=== PATIENT | female | born 1955 | race Caucasian/White ===

== ENCOUNTER 2016-08-01 13:10 | Emergency (ER) | payer MEDICARE, MEDICAID ==
[~2016-08-01] VITALS: Ht 162.6 cm; Wt 87.0 kg
[~2016-08-01 13:10] MED LIST: HYDR-3516 PO; LEVO.125 PO; MECL-62 PO; NAPR250T PO; OMEP20TA PO
[2016-08-01 13:36] VITALS: BP 121/63; PULSE 79; RESP 15; TEMP 98.5; O2SAT 94
[2016-08-01] MEDS ORDERED: ASPIRIN 81 MG CHEW TAB PO ONE (14:00)
[2016-08-01] MEDS ORDERED: SODIUM CHLORIDE 0.9% FLUSH 5 ML FLUSH IVF PRN (14:00)
--- NOTE | 2016-08-01 14:26 | PD ---
HPI Chief Complaint: Chest Pain Time Seen by Provider: 14:01 Travel History International Travel<30 days: No Contact w/Intl Traveler<30days: No Traveled to known affect area: No History of Present Illness HPI 60 year-old female presents to the emergency room via ambulance for evaluation of chest pain that has been ongoing for the past 3 days. Patient states she has had a nonproductive cough, nausea, vomiting, sore throat, and congestion for the same amount of time. She went to her primary care physician who prescribed an antibiotic but she has not been able to fill it yet. She was sent to [place] today for a chest x-ray and while there began complaining of sharp, severe, left-sided chest pain so they called an ambulance. Patient states pain is intermittent. It is always sharp in nature. Worse with deep breathing. One time it radiated to her left upper extremity and caused a muscle cramp in her biceps. Denies associated diaphoresis and shortness of breath. Denies cardiac or lung history. Patient is former smoker. She did not have a flu shot this year. Denies abdominal pain. Patient received aspirin in route to hospital. 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, bunion) Social History Alcohol Use: No Tobacco Use: No Substance Use: No Allergies-Medications (Allergen,Severity, Reaction): Coded Allergies: Amoxicillin (Verified Allergy, Severe, Rash, 03/01/16) Flexeril (Verified Allergy, Severe, Rash, 03/01/16) Keflex (Verified Allergy, Severe, Rash, 03/01/16) Penicillin (Verified Allergy, Severe, Rash, 03/01/16) Tylenol (Verified Allergy, Severe, HIVES, 03/01/16) Reported Meds & Prescriptions Reported Meds & Active Scripts Active Ventolin Hfa 18 GM Inh (Albuterol Sulfate) 90 Mcg/Act Aer 2 Puff INH Q6H PRN Ibuprofen 800 Mg Tab 800 Mg PO Q8H PRN Azithromycin 250 Mg Tab 250 Mg PO DIRECTED Take 2 tabs (500 mg) on day 1 then 1 tab daily x 4 days. Naproxen 250 Mg Tab 250 Mg PO BID Take Naproxen 500mg (2 tablets) twice daily for 5 days, followed by 250mg (1 tablet) twice daily as needed for pain. Reported Synthroid (Levothyroxine Sodium) 125 Mcg Tab 125 Mcg PO DAILY Omeprazole 20 Mg Tab 20 Mg PO DAILY Meclizine (Meclizine HCl) 25 Mg Tab 25 Mg PO TID PRN Hydrocodone-Acetaminophen 5-325 mg Tab 1 Tab PO Q6H PRN Review of Systems Except as stated in HPI: all other systems reviewed are Neg Physical Exam Narrative GENERAL: Well-nourished, well-developed female in no acute distress. Afebrile. Ambulatory. SKIN: Warm and dry. HEAD: Normocephalic. EYES: No scleral icterus. No injection or drainage. ENT: Mucosa pink and moist. Mild erythema of the pharynx without edema or exudates. No uvular edema. No uvular, palatal, or tonsillar deviation. Airway patent. Nasal turbinates appear normal without nasal blood, purulent drainage or septal hematoma. EARS: Bilateral pinnae and external canals appear within normal limits. Bilateral tympanic membranes without erythema, dullness or perforation. NECK: Supple, trachea midline. No JVD or lymphadenopathy. CARDIOVASCULAR: Regular rate and rhythm without murmurs, gallops, or rubs. RESPIRATORY: Breath sounds equal bilaterally. No accessory muscle use. Bilateral inspiratory and expiratory wheezes. GASTROINTESTINAL: Abdomen soft, non-tender, nondistended. Data Data Last Documented VS Vital Signs Date Time Temp Pulse Resp B/P Pulse Ox O2 Delivery O2 Flow Rate FiO2 08/01/16 13:36 98.5 79 15 121/63 94 Orders Electrocardiogram (08/01/16 ) Ckmb (Isoenzyme) Profile (08/01/16 13:59) Complete Blood Count With Diff (08/01/16 13:59) Comprehensive Metabolic Panel (08/01/16 13:59) Prothrombin Time / Inr (Pt) (08/01/16 13:59) Act Partial Throm Time (Ptt) (08/01/16 13:59) Troponin I (08/01/16 13:59) Lipase (08/01/16 13:59) Ecg Monitoring (08/01/16 13:59) Bilateral Bp Monitoring (08/01/16 13:59) Iv Access Insert/Monitor (08/01/16 13:59) Oximetry (08/01/16 13:59) Sodium Chloride 0.9% Flush (Ns Flush) (08/01/16 14:00) Chest, Pa & Lat (08/01/16 13:59) Influenzae A/B Antigen (08/01/16 14:07) Pantoprazole Inj (Protonix Inj) (08/01/16 14:30) Albuterol-Ipratropium Neb (Duoneb Neb) (08/01/16 14:45) Calcium Gluconate Inj (Calcium Gluconate (08/01/16 15:15) Labs Laboratory Tests Test 08/01/16 14:15 White Blood Count 7.8 TH/MM3 Red Blood Count 4.27 MIL/MM3 Hemoglobin 13.1 GM/DL Hematocrit 39.0 % Mean Corpuscular Volume 91.3 FL Mean Corpuscular Hemoglobin 30.8 PG Mean Corpuscular Hemoglobin 33.7 % Concent Red Cell Distribution Width 13.5 % Platelet Count 167 TH/MM3 Mean Platelet Volume 9.0 FL Neutrophils (%) (Auto) 53.5 % Lymphocytes (%) (Auto) 32.7 % Monocytes (%) (Auto) 10.6 % Eosinophils (%) (Auto) 2.5 % Basophils (%) (Auto) 0.7 % Neutrophils # (Auto) 4.2 TH/MM3 Lymphocytes # (Auto) 2.5 TH/MM3 Monocytes # (Auto) 0.8 TH/MM3 Eosinophils # (Auto) 0.2 TH/MM3 Basophils # (Auto) 0.1 TH/MM3 CBC Comment DIFF FINAL Differential Comment Prothrombin Time 10.7 SEC Prothromb Time International 1.0 RATIO Ratio Activated Partial 28.9 SEC Thromboplast Time Sodium Level 139 MEQ/L Potassium Level 4.0 MEQ/L Chloride Level 102 MEQ/L Carbon Dioxide Level 30.3 MEQ/L Anion Gap 7 MEQ/L Blood Urea Nitrogen 8 MG/DL Creatinine 0.94 MG/DL Estimat Glomerular Filtration 61 ML/MIN Rate Random Glucose 87 MG/DL Calcium Level 6.9 MG/DL Protein Corrected Calcium 7.0 MG/DL Total Bilirubin 0.3 MG/DL Aspartate Amino Transf 15 U/L (AST/SGOT) Alanine Aminotransferase 13 U/L (ALT/SGPT) Alkaline Phosphatase 114 U/L Total Creatine Kinase 84 U/L Troponin I LESS THAN 0.02 NG/ML Total Protein 7.0 GM/DL Albumin 3.3 GM/DL Lipase 128 U/L MDM Medical Decision Making Medical Screen Exam Complete: Yes Emergency Medical Condition: Yes Medical Record Reviewed: Yes Differential Diagnosis Pneumonia versus influenza versus musculoskeletal chest pain versus pleuritic chest pain versus CAD unlikely Narrative Course 60-year-old female with no known cardiac or lung disease presents to the emergency room via ambulance for evaluation of bilateral, sharp, pleuritic chest pain, left worse than right for the past 3 days. Patient has associated upper respiratory symptoms. She was started on antibiotics recently but has not filled them yet. She was at the imaging center to have a chest x-ray performed when she began developing worsening pain. Physical exam is reassuring. Vital signs stable. She is 95% on room air. Lung sounds reveal bilateral inspiratory and expiratory wheezes. DuoNeb's ordered. IV access established, given Protonix, patient placed on cardiac telemetry, and basic labs obtained. EKG shows normal sinus rhythm with a rate of 70, no ST changes; signed off by my attending physician. Rapid flu is negative. CBC is unremarkable. CMP just shows low calcium. Calcium replaced with calcium gluconate. History and physical exam are consistent with acute bronchitis with associated pleuritic chest pain. Patient's pain is not typical of cardiac etiology. Patient has had similar presentation in the past and was admitted to the chest pain center with cardiac etiology ruled out using serial EKGs and enzymes. She'll be discharged with prescriptions for azithromycin, albuterol inhaler, and ibuprofen for pain. Patient to follow up with her primary care physician or return to the emergency room for worsening symptoms. She understands and agrees to plan. Diagnosis Primary Impression: Acute bronchitis Qualified Code: J20.9 - Acute bronchitis, unspecified organism Additional Impression: Pleuritic chest pain Referrals: Primary Care Physician Patient Instructions: Acute Bronchitis (ED), General Instructions, Pleurisy (ED ) Additional Instructions: Rest and drink plenty of fluids. Azithromycin as directed, until gone. Use inhaler as directed, as needed for shortness of breath and wheezing. Take ibuprofen with food as directed, as needed for pleuritic chest pain pain. Follow-up with a primary care physician. Return to the emergency room for worsening symptoms. Med/Other Pt SpecificInfo: Prescription(s) given Scripts Albuterol 18 GM Inh (Ventolin Hfa 18 GM Inh)90 Mcg/Act Aer2 Puff INH Q6H PRN ( SHORTNESS OF BREATH) #1 INHALER Ref 0 Prov:Valeria Vega DO 08/01/16 Ibuprofen 800 Mg [id number] Mg PO Q8H PRN (Pain/Inflammation) #21 TAB Ref 0 Prov:Valeria Vega DO 08/01/16 Azithromycin 250 Mg [id number] Mg PO DIRECTED #6 TAB Ref 0 Take 2 tabs (500 mg) on day 1 then 1 tab daily x 4 days. Prov:Valeria Vega DO 08/01/16 Disposition: 01 DISCHARGE HOME Condition: Stable Juliette Osullivan Aug 01, 2016 14:26
[2016-08-01] MEDS ORDERED: PANTOPRAZOLE SODIUM 40 MG VIAL IVP ONE (14:30)
[2016-08-01 14:32] LABS: AUTOMATED NEUTROPHIL # 4.2 TH/MM3 (1.8-7.7); BASOPHIL # 0.1 TH/MM3 (0-0.2); BASOPHIL % 0.7 % (0.0-2.0); EOSINOPHIL # 0.2 TH/MM3 (0-0.4); EOSINOPHIL % 2.5 % (0.0-4.0); HEMO FLAGS DIFF FINAL; LYMPH % 32.7 % (9.0-44.0); LYMPHOCYTE # 2.5 TH/MM3 (1.0-4.8); MEAN CELL VOLUME 91.3 FL (80.0-100.0); MEAN CORPUSCULAR HEMOGLOBIN 30.8 PG (27.0-34.0); MEAN CORPUSCULAR HGB CONC 33.7 % (32.0-36.0); MONO % 10.6 % (0.0-8.0); NEUT % 53.5 % (16.0-70.0); PLATELET COUNT 167 TH/MM3 (150-450); RED BLOOD COUNT 4.27 MIL/MM3 (4.00-5.30); RED CELL DISTRIBUTION WIDTH 13.5 % (11.6-17.2); WHITE BLOOD COUNT 7.8 TH/MM3 (4.0-11.0)
[2016-08-01 14:40] LABS: APTT (PATIENT) 28.9 SEC (24.3-30.1); PROTHROMBIN TIME - PATIENT 10.7 SEC (9.8-11.6)
[2016-08-01 15:00] LABS: ALKALINE PHOSPHATASE 114 U/L (45-117); ALT (GPT) 13 U/L (10-53); ANION GAP 7 MEQ/L (5-15); AST (GOT) 15 U/L (15-37); BICARBONATE 30.3 MEQ/L (21.0-32.0); BLOOD UREA NITROGEN 8 MG/DL (7-18); CHLORIDE 102 MEQ/L (98-107); GLOMERULAR FILTRATION RATE 61 ML/MIN (>89); SODIUM (NA) 139 MEQ/L (136-145); TOTAL BILIRUBIN ADULT 0.3 MG/DL (0.2-1.0)
[2016-08-01 15:01] LABS: CREATINE KINASE 84 U/L (26-192)
[2016-08-01] MEDS: RESP: ALBUTEROL 2.5 MG/IPRATROPIUM 0.5 MG NEB (SCH) INH ×2 (15:07→15:08)
[2016-08-01] MEDS ORDERED: CALCIUM GLUCONATE INJ 1 GM in DEXTROSE 5% IN WATER 100ML INJ 100 ML IV ONE ×2 (15:15)
--- NOTE | 2016-08-01 15:21 | PD ---
Physical Exam Narrative I, Dr. Vega, have reviewed the advance practice practitioner's documentation and am in agreement, met with the patient face to face, made the diagnosis, and the medical decision making was done by me. *My assessment and Findings: URI with reactive airway disease and pleuritic chest pain 60yo F with 3 days of URI symptoms. Pt has very mild wheezing on lung exam and receiving nebulizer treatments. Chest pain is very reproducible under left breast, impression is musculoskeletal pain from coughing or costochondritis. Labs reviewed, no leukocytosis. Protein corrected calcium is 7.0, replaced with calcium gluconate 1gm IV. Troponin negative. CXR negative. Pt feels better after treatment. Return precautions given. Influenza negative. Data Data Last Documented VS Vital Signs Date Time Temp Pulse Resp B/P Pulse Ox O2 Delivery O2 Flow Rate FiO2 08/01/16 13:36 98.5 79 15 121/63 94 Orders Electrocardiogram (08/01/16 ) Ckmb (Isoenzyme) Profile (08/01/16 13:59) Complete Blood Count With Diff (08/01/16 13:59) Comprehensive Metabolic Panel (08/01/16 13:59) Prothrombin Time / Inr (Pt) (08/01/16 13:59) Act Partial Throm Time (Ptt) (08/01/16 13:59) Troponin I (08/01/16 13:59) Lipase (08/01/16 13:59) Ecg Monitoring (08/01/16 13:59) Bilateral Bp Monitoring (08/01/16 13:59) Iv Access Insert/Monitor (08/01/16 13:59) Oximetry (08/01/16 13:59) Sodium Chloride 0.9% Flush (Ns Flush) (08/01/16 14:00) Chest, Pa & Lat (08/01/16 13:59) Influenzae A/B Antigen (08/01/16 14:07) Pantoprazole Inj (Protonix Inj) (08/01/16 14:30) Albuterol-Ipratropium Neb (Duoneb Neb) (08/01/16 14:45) Calcium Gluconate Inj (Calcium Gluconate (08/01/16 15:15) Labs Laboratory Tests Test 08/01/16 14:15 White Blood Count 7.8 TH/MM3 Red Blood Count 4.27 MIL/MM3 Hemoglobin 13.1 GM/DL Hematocrit 39.0 % Mean Corpuscular Volume 91.3 FL Mean Corpuscular Hemoglobin 30.8 PG Mean Corpuscular Hemoglobin 33.7 % Concent Red Cell Distribution Width 13.5 % Platelet Count 167 TH/MM3 Mean Platelet Volume 9.0 FL Neutrophils (%) (Auto) 53.5 % Lymphocytes (%) (Auto) 32.7 % Monocytes (%) (Auto) 10.6 % Eosinophils (%) (Auto) 2.5 % Basophils (%) (Auto) 0.7 % Neutrophils # (Auto) 4.2 TH/MM3 Lymphocytes # (Auto) 2.5 TH/MM3 Monocytes # (Auto) 0.8 TH/MM3 Eosinophils # (Auto) 0.2 TH/MM3 Basophils # (Auto) 0.1 TH/MM3 CBC Comment DIFF FINAL Differential Comment Prothrombin Time 10.7 SEC Prothromb Time International 1.0 RATIO Ratio Activated Partial 28.9 SEC Thromboplast Time Sodium Level 139 MEQ/L Potassium Level 4.0 MEQ/L Chloride Level 102 MEQ/L Carbon Dioxide Level 30.3 MEQ/L Anion Gap 7 MEQ/L Blood Urea Nitrogen 8 MG/DL Creatinine 0.94 MG/DL Estimat Glomerular Filtration 61 ML/MIN Rate Random Glucose 87 MG/DL Calcium Level 6.9 MG/DL Protein Corrected Calcium 7.0 MG/DL Total Bilirubin 0.3 MG/DL Aspartate Amino Transf 15 U/L (AST/SGOT) Alanine Aminotransferase 13 U/L (ALT/SGPT) Alkaline Phosphatase 114 U/L Total Creatine Kinase 84 U/L Troponin I LESS THAN 0.02 NG/ML Total Protein 7.0 GM/DL Albumin 3.3 GM/DL Lipase 128 U/L [facility] Supervised Visit with GARY: Yes Interpretation(s) EKG: NSR 70bpm. Normal axis. No ST segment elevation or depression. Scripts Albuterol 18 GM Inh (Ventolin Hfa 18 GM Inh)90 Mcg/Act Aer2 Puff INH Q6H PRN ( SHORTNESS OF BREATH) #1 INHALER Ref 0 Prov:GaryValeria DO 08/01/16 Ibuprofen 800 Mg [id number] Mg PO Q8H PRN (Pain/Inflammation) #21 TAB Ref 0 Prov:Valeria Vega DO 08/01/16 Azithromycin 250 Mg [id number] Mg PO DIRECTED #6 TAB Ref 0 Take 2 tabs (500 mg) on day 1 then 1 tab daily x 4 days. Prov:Valeria Vega DO 08/01/16 Disposition: 01 DISCHARGE HOME Condition: Stable Valeria Vega DO Aug 01, 2016 15:21
--- NOTE | 2016-08-01 15:31 | RADRPT ---
EXAM DATE/TIME: 08/01/2016 14:35 [facility] COMPARISON: CHEST PA & LAT, November 20, 2015, 12:55. EXTERNAL COMPARISON : [facility] INDICATIONS : Chest pain. MEDICAL HISTORY : None. SURGICAL HISTORY : None. ENCOUNTER: Initial ACUITY: 2 days PAIN SCORE: 7/10 LOCATION: middle chest. FINDINGS: PA and lateral views of the chest demonstrate the lungs to be symmetrically aerated without evidence of mass, infiltrate or effusion. The cardiomediastinal contours are unremarkable. Osseous structure s are intact. CONCLUSION: No acute disease. Tomas Ba MD on August 01, 2016 at 15:19 Board Certified Radiologist. This report was verified electronically.
[2016-08-01] MEDS ORDERED: IBUP800T23 PO (15:40)
[2016-08-01] MEDS ORDERED: AZIT250T3 PO (15:40)
[2016-08-01] MEDS ORDERED: VENTAER INH (15:40)
[2016-08-01 17:04] VITALS: BP 129/67
--- NOTE | 2016-08-02 22:57 | EKG ---
Date Performed: 08/01/2016 Time Performed: 13:51:38 PTAGE: 60 years EKG: Sinus rhythm NORMAL ECG PREVIOUS TRACING : 05/27/2016 21.54 DOCTOR: Hu Yoo Interpretating Date/Time 08/02/2016 22:49:48
== END 2016-08-01 17:06 | disposition home or self-care (01) ==
LOC: NEPC 13:10
DX: J20.9 Acute bronchitis, unspecified (principal); R07.81 Pleurodynia; J06.9 Acute upper respiratory infection, unspecified; R06.2 Wheezing; E03.9 Hypothyroidism, unspecified; Z88.0 Allergy status to penicillin; Z88.1 Allergy status to other antibiotic agents; Z88.6 Allergy status to analgesic agent
CPT/HCPCS: 71020; 80053; 82550; 83690; 84484; 85025; 85610; 85730; 87804; 93005; 94640; 94664; 96365; 96375; 99284; C9113; J0610

== ENCOUNTER 2016-08-08 13:31 | Emergency (ER) | payer MEDICARE, MEDICAID ==
[~2016-08-08] VITALS: Ht 162.6 cm; Wt 86.0 kg
[~2016-08-08 13:31] MED LIST changes: +AZIT250T3 PO; +IBUP800T23 PO; +VENTAER INH
[2016-08-08 13:35] VITALS: BP 131/79; PULSE 85; RESP 18; TEMP 98.1; O2SAT 96
[2016-08-08] MEDS ORDERED: MORPHINE SULFATE 4 MG/ML INJ IV PUSH ONE (14:00)
[2016-08-08] MEDS ORDERED: KETOROLAC TROMETHAMINE 30 MG/ML (IVP) VIAL IV PUSH ONE (14:00)
[2016-08-08] MEDS ORDERED: ONDANSETRON HCL 4 MG/2 ML VIAL IV PUSH ONE (14:00)
--- NOTE | 2016-08-08 14:52 | PD ---
HPI Chief Complaint: Fall Time Seen by Provider: 14:48 Travel History International Travel<30 days: No Contact w/Intl Traveler<30days: No Traveled to known affect area: No History of Present Illness HPI 60-year-old female that presents to the ED for evaluation of trip and fall today. Per patient she tripped over a cord on the street and landed on her left side. She did not hit her head was consciousness. Per patient she has severe pain to the left arm and shoulder. She denies any prior injuries. She also states having pain to the left knee. Pain to the left neck and left ribs. Denies losing consciousness. Doesn't take any blood thinners. Denies any blurred vision and double vision. No headache. No shortness of breath. Per patient pain is 10 out of 10 especially in the shoulder. She was brought here by ambulance and was not given any pain medication on the way here. Patient does have multiple allergies to medication. She denies any lacerations or open skin wounds. She was brought here in a cervical collar with backboard in place. Patient has pain with any range of motion and touch of the left shoulder. 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, bunion) Social History Alcohol Use: No Tobacco Use: No Substance Use: No Allergies-Medications (Allergen,Severity, Reaction): Coded Allergies: Amoxicillin (Verified Allergy, Severe, Rash, 08/08/16) Flexeril (Verified Allergy, Severe, Rash, 08/08/16) Keflex (Verified Allergy, Severe, Rash, 08/08/16) Penicillin (Verified Allergy, Severe, Rash, 08/08/16) Tylenol (Verified Allergy, Severe, HIVES, 08/08/16) Reported Meds & Prescriptions Reported Meds & Active Scripts Active Diclofenac Sodium DR (Diclofenac Sodium) 75 Mg Tabdr 75 Mg PO BID PRN Percocet (Oxycodone-Acetaminophen) 5-325 mg Tab 1 Tab PO Q6H PRN Ventolin Hfa 18 GM Inh (Albuterol Sulfate) 90 Mcg/Act Aer 2 Puff INH Q6H PRN Ibuprofen 800 Mg Tab 800 Mg PO Q8H PRN Azithromycin 250 Mg Tab 250 Mg PO DIRECTED Take 2 tabs (500 mg) on day 1 then 1 tab daily x 4 days. Naproxen 250 Mg Tab 250 Mg PO BID Take Naproxen 500mg (2 tablets) twice daily for 5 days, followed by 250mg (1 tablet) twice daily as needed for pain. Reported Synthroid (Levothyroxine Sodium) 125 Mcg Tab 125 Mcg PO DAILY Omeprazole 20 Mg Tab 20 Mg PO DAILY Meclizine (Meclizine HCl) 25 Mg Tab 25 Mg PO TID PRN Hydrocodone-Acetaminophen 5-325 mg Tab 1 Tab PO Q6H PRN Review of Systems Except as stated in HPI: all other systems reviewed are Neg Physical Exam Narrative GENERAL: SKIN: Warm and dry. HEAD: Atraumatic. Normocephalic. EYES: Pupils equal and round 4 mm reactive to light and accommodation. No scleral icterus. No injection or drainage. ENT: No nasal bleeding or discharge. Mucous membranes pink and moist. Tongue is midline. No Uvula deviation. NECK: Trachea midline. No JVD. CARDIOVASCULAR: Regular rate and rhythm. RESPIRATORY: No accessory muscle use. Clear to auscultation. Breath sounds equal bilaterally. GASTROINTESTINAL: Abdomen soft, non-tender, nondistended. Hepatic and splenic margins not palpable. MUSCULOSKELETAL: Extremities without clubbing, cyanosis, or edema. No obvious deformities. Full range of motion of the entire right upper and right lower extremity. Patient does have some thoracic spine tenderness to palpation as well as cervical spine tenderness to palpation. No lumbar spine tenderness to palpation. Patient has pain with any range of motion of the left shoulder as well as the left knee and elbow. Patient does have 2+ pulses bilaterally. Neurovascular intact. Relaster strength normal. NEUROLOGICAL: Awake and alert. No obvious cranial nerve deficits. Motor grossly within normal limits. Five out of 5 muscle strength in the arms and legs. Normal speech. PSYCHIATRIC: Appropriate mood and affect; insight and judgment normal. Data Data Last Documented VS Vital Signs Date Time Temp Pulse Resp B/P Pulse Ox O2 Delivery O2 Flow Rate FiO2 08/08/16 15:53 81 18 104/66 94 Room Air 08/08/16 13:[address] Cerv Spine W/O Contrast (08/08/16 13:58) Forearm (2vws) (08/08/16 13:58) Humerus (Min 2vws) (08/08/16 13:58) Knee, Complete (4vws) (08/08/16 13:58) Shoulder, Limited(2vws) (08/08/16 13:58) Ice/Cold Pack (08/08/16 13:58) Ribs, Uni (W/Exp Cxr-Min 3vw) (08/08/16 13:58) Ketorolac Inj (Toradol Inj) (08/08/16 14:00) Morphine Inj (Morphine Inj) (08/08/16 14:00) Ondansetron Inj (Zofran Inj) (08/08/16 14:00) Sling And Swathe (08/08/16 ) Ct Shoulder W/O Contrast (08/08/16 ) Hydromorphone Pf Inj (Dilaudid Pf Inj) (08/08/16 16:00) Remove Cervical Collar (08/08/16 16:52) MDM Medical Decision Making Medical Screen Exam Complete: Yes Emergency Medical Condition: Yes Medical Record Reviewed: Yes Interpretation(s) Last Impressions Shoulder X-Ray 08/08/161357 Signed Impressions: Service Date/Time: July 15:08 - CONCLUSION: No acute disease. Snehal Madera MD Ribs X-Ray 08/08/161357 Signed Impressions: Service Date/Time: July 15:13 - CONCLUSION: 1. Concern for nondisplaced fracture of the left humeral head. 2. No visualized rib fracture.. Snehal Madera MD Radius/Ulna X-Ray 08/08/161357 Signed Impressions: Service Date/Time: July 14:58 - CONCLUSION: No visualized fracture.. Snehal Madera MD Knee X-Ray 08/08/161357 Signed Impressions: Service Date/Time: July 15:03 - CONCLUSION: Unremarkable examination of the left knee. Snehal Madera MD Humerus X-Ray 08/08/16 1358 Signed Impressions: Service Date/Time: July 14:56 - CONCLUSION: Concern for nondisplaced fracture of the left humeral head. Recommend confirmation with CT. Snehal Madera MD CT of the cervical spine show no sign of acute disease. CT of the left shoulder show nondisplaced fracture of the humeral head Differential Diagnosis Fracture versus sprain versus strain versus dislocation Narrative Course 60-year-old female that presents to the ED for evaluation of fall. Patient was properly examined and was found to have signs and symptoms consistent what appears to be fall. Concerning for fractures. X-rays were ordered. Patient was given IV pain medications. X-rays and imaging showed possible nondisplaced fracture of the left humerus. Per radiology recommends CT to better evaluate. CT was ordered. Patient was given 1 more dose of IV pain medication to help with symptoms. CT confirmed fracture. Patient was told this. Recommendation is for outpatient follow-up with orthopedic surgeon. Patient was given information for Dr. Boswell. Sling and swather ordered. Mandatory referral was ordered. Patient will be sent home with prescription for Percocet and Sodium. Follow with PCP. See ED worsening symptoms. Diagnosis Primary Impression: Humeral head fracture Qualified Code: S42.292A - Humeral head fracture, left, closed, initial encounter Referrals: Salazar Boswell MD Patient Instructions: Narcotic given in the ED, General Instructions Additional Instructions: Take medications as prescribed. Follow-up with ortho See ED for any worsening symptoms. Do not drink or drive while taking pain medication. Apply ice or heat as needed for pain Med/Other Pt SpecificInfo: Prescription(s) given Scripts Diclofenac Sodium DR 75 Mg Tabdr75 Mg PO BID PRN (PAIN SCALE 1 TO 10) #20 TAB Prov:Anish De Santiago MD 08/08/16 Oxycodone-Acetaminophen (Percocet)5-325 mg Tab1 Tab PO Q6H PRN (PAIN) #20 TAB Ref 0 Prov:Anish De Santiago MD 08/08/16 Disposition: 01 DISCHARGE HOME Condition: Stable Vince Campo Aug 08, 2016 14:52
--- NOTE | 2016-08-08 15:18 | RADRPT ---
EXAM DATE/TIME: 08/08/2016 15:08 [facility] COMPARISON: No previous studies available for comparison. INDICATIONS : Left shoulder pain after fall on concrete. MEDICAL HISTORY : None. SURGICAL HISTORY : None. ENCOUNTER: Initial ACUITY: 1 day PAIN SCORE: 10/10 LOCATION: Left shoulder. FINDINGS: Two view examination of the left shoulder demonstrates no evidence of fracture or dislocation. The g lenohumeral and acromioclavicular joints are maintained. Bony mineralization is normal. CONCLUSION: No acute disease. Snehal Madera MD on August 08, 2016 at 15:16 Board Certified Radiologist. This report was verified electronically.
--- NOTE | 2016-08-08 15:20 | RADRPT ---
EXAM DATE/TIME: 08/08/2016 15:03 [facility] COMPARISON: No previous studies available for comparison. INDICATIONS : Left knee pain after fall on concrete. MEDICAL HISTORY : None. SURGICAL HISTORY : None. ENCOUNTER: Initial ACUITY: 1 day PAIN SCORE: 10/10 LOCATION: Left knee. FINDINGS: Four view examination of the left knee demonstrates no evidence of fracture or dislocation. Bony min eralization is normal. The articular surfaces are intact. The suprapatellar soft tissues have a nor mal configuration. CONCLUSION: Unremarkable examination of the left knee. Snehal Madera MD on August 08, 2016 at 15:19 Board Certified Radiologist. This report was verified electronically.
--- NOTE | 2016-08-08 15:20 | RADRPT ---
EXAM DATE/TIME: 08/08/2016 14:56 [facility] COMPARISON: RIBS LEFT(W PA CXR MIN 3VWS), August 08, 2016, 15:13. INDICATIONS : Left humerus pain after fall on concrete. MEDICAL HISTORY : None. SURGICAL HISTORY : None. ENCOUNTER: Initial ACUITY: 1 day PAIN SCORE: 10/10 LOCATION: Left proximal humerus. FINDINGS: 2 views left humerus demonstrate an ill-defined lucency traversing the humeral head concerning for a nondisplaced fracture. No evidence of shoulder dislocation. CONCLUSION: Concern for nondisplaced fracture of the left humeral head. Recommend confirmation [facility] CT. Snehal Madera MD on August 08, 2016 at 15:17 Board Certified Radiologist. This report was verified electronically.
--- NOTE | 2016-08-08 15:24 | RADRPT ---
EXAM DATE/TIME: 08/08/2016 15:13 [facility] COMPARISON: No previous studies available for comparison. INDICATIONS : Left rib pain after fall on concrete. MEDICAL HISTORY : None. SURGICAL HISTORY : None. ENCOUNTER: Initial ACUITY: 1 day PAIN SCORE: 10/10 LOCATION: Left ribs. FINDINGS: Multiple views of the left ribs were performed. There is again noted an ill-defined lucency traversin g the left humeral head. Concern for nondisplaced fracture. With regards to the ribs there is no evid ence of refracture. No destructive lesions or areas of periosteal thickening are seen. Expiratory v iew of the chest is negative for pneumothorax. The mediastinal structures are midline. CONCLUSION: 1. Concern for nondisplaced fracture of the left humeral head. 2. No visualized rib fracture.. Snehal Madera MD on August 08, 2016 at 15:21 Board Certified Radiologist. This report was verified electronically.
--- NOTE | 2016-08-08 15:39 | RADRPT ---
EXAM DATE/TIME: 08/08/2016 14:58 [facility] COMPARISON: No previous studies available for comparison. INDICATIONS : Left forearm pain after fall on concrete. MEDICAL HISTORY : None. SURGICAL HISTORY : None. ENCOUNTER: Initial ACUITY: 1 day PAIN SCORE: 10/10 LOCATION: Left forearm. FINDINGS: 2 views of the patient's left forearm and elbow demonstrate no visible fracture. The patient's watch overlies the distal radius and ulna securing underlying osseous detail. Soft tissues appear normal. CONCLUSION: No visualized fracture.. Snehal Madera MD on August 08, 2016 at 15:36 Board Certified Radiologist. This report was verified electronically.
[2016-08-08 15:53] VITALS: BP 104/66; PULSE 81; RESP 18; O2SAT 94
[2016-08-08] MEDS ORDERED: HYDROmorphone HCL PF 1 MG/ML VIAL IV PUSH ONE (16:00)
[2016-08-08] MEDS ORDERED: PERC5TAB12 PO (16:37)
[2016-08-08] MEDS ORDERED: DICL75TA PO (16:37)
--- NOTE | 2016-08-08 16:39 | RADRPT ---
EXAM DATE/TIME: 08/08/2016 16:07 [facility] COMPARISON: No previous studies available for comparison. INDICATIONS : Patient fell, complains of neck pain RADIATION DOSE: 31.89 CTDIvol (mGy) MEDICAL HISTORY : None SURGICAL HISTORY : Thyroidectomy. ENCOUNTER: Initial ACUITY: 1 day PAIN SCALE: 10/10 LOCATION: neck TECHNIQUE: Volumetric scanning of the cervical spine was performed. Multiplanar reconstructions in the sagittal, coronal and oblique axial planes were performed. Using automated exposure control and adjustment o f the mA and/or kV according to patient size, radiation dose was kept as low as reasonably achievable to obtain optimal diagnostic quality images. FINDINGS: VERTEBRAE: Normal vertebral body height. ALIGNMENT: No evidence of subluxation. C2-C3: The bony spinal canal is normal in size. No evidence of disc bulge or herniation. The neural forami na are bilaterally patent. C3-C4: The bony spinal canal is normal in size. No evidence of disc bulge or herniation. The neural forami na are bilaterally patent. C4-C5: The bony spinal canal is normal in size. No evidence of disc bulge or herniation. The neural forami na are bilaterally patent. C5-C6: The bony spinal canal is normal in size. No evidence of disc bulge or herniation. The neural forami na are bilaterally patent. C6-C7: The bony spinal canal is normal in size. No evidence of disc bulge or herniation. The neural forami na are bilaterally patent. C7-T1: The bony spinal canal is normal in size. No evidence of disc bulge or herniation. The neural forami na are bilaterally patent. CONCLUSION: No acute disease. Snehal Madera MD on August 08, 2016 at 16:37 Board Certified Radiologist. This report was verified electronically.
--- NOTE | 2016-08-08 17:03 | RADRPT ---
EXAM DATE/TIME: 08/08/2016 16:11 [facility] COMPARISON: No previous studies available for comparison. INDICATIONS : Patient fell, complains of neck and left shoulder pain RADIATION DOSE: 41.09 CTDIvol (mGy) MEDICAL HISTORY : None SURGICAL HISTORY : Thyroidectomy. ENCOUNTER: Initial ACUITY: 1 day PAIN SCALE: 10/10 LOCATION: Left shoulder TECHNIQUE: Volumetric scanning of the shoulder was performed. Using automated exposure control a nd adjustment of the mA and/or kV according to patient size, radiation dose was kept as low as reason ably achievable to obtain optimal diagnostic quality images. FINDINGS: BONES: There is a nondisplaced fracture of the left humerus at the level of the greater tuberosit y. The remainder the osseous structures appear intact. No evidence of refracture. JOINTS: No evidence of joint narrowing or effusion. SOFT TISSUES: Muscles, tendons, and neurovascular structures are grossly unremarkable. The integ rity of the rotator cuff tendons cannot be reliably evaluated on CT without intra-articular contrast. No evidence of mass, organized fluid collection, or foreign body. CONCLUSION: Nondisplaced fracture involving the left greater tuberosity. No evidence of refractur eWarner Madera MD on August 08, 2016 at 16:59 Board Certified Radiologist. This report was verified electronically.
[2016-08-08 18:18] VITALS: BP 134/67; TEMP 98.3
== END 2016-08-08 18:00 | disposition home or self-care (01) ==
LOC: NEPE 13:31
DX: S42.292A Other displaced fracture of upper end of left humerus, initial encounter for closed fracture (principal); M25.562 Pain in left knee; M54.2 Cervicalgia; R07.81 Pleurodynia; E07.9 Disorder of thyroid, unspecified; Z87.19 Personal history of other diseases of the digestive system; W01.0XXA Fall on same level from slipping, tripping and stumbling without subsequent striking against object, initial encounter; Y92.410 Unspecified street and highway as the place of occurrence of the external cause
CPT/HCPCS: 29240; 71101; 72125; 73030; 73060; 73090; 73200; 73564; 96374; 96375; 99284; J1170; J1885; J2270; J2405

== ENCOUNTER 2017-01-11 21:39 | Emergency (ER) | payer MEDICARE, MEDICAID ==
[~2017-01-11] VITALS: Ht 162.6 cm; Wt 84.0 kg
[~2017-01-11 21:39] MED LIST changes: +DICL75TA PO; +PERC5TAB12 PO
[2017-01-11 21:41] VITALS: BP 193/79; PULSE 74; RESP 18; TEMP 97.7; O2SAT 98
== END 2017-01-11 23:15 | disposition left against medical advice (07) ==
LOC: NED 21:39
DX: M79.604 Pain in right leg (principal); Z53.21 Procedure and treatment not carried out due to patient leaving prior to being seen by health care provider
CPT/HCPCS: 99281

== ENCOUNTER 2017-04-22 13:28 | Emergency (ER) | payer MEDICARE, MEDICAID ==
[~2017-04-22] VITALS: Ht 162.6 cm; Wt 88.0 kg
[2017-04-22 13:32] VITALS: BP 143/86; PULSE 79; RESP 22; TEMP 98; O2SAT 95
--- NOTE | 2017-04-22 13:46 | PD ---
Physical Exam Date Seen by Provider: Apr 22, 2017 Time Seen by Provider: 13:44 Narrative 61 yo female here for evaluation of N/V and right knee pain. Pain in knee is . Cannot ambulate secondary to pain. N/V going on since friday. Some abdominal discomfort. No recent travel or injury. Vitals are stable in triage. Awaiting bed placement. Data Data Last Documented VS Vital Signs Date Time Temp Pulse Resp B/P (MAP) Pulse Ox O2 Delivery O2 Flow Rate FiO2 04/22/17 13:32 98.0 79 22 143/86 (105) 95 Room Air [facility] Medical Record Reviewed: Yes Supervised Visit with GARY: No Vince Campo Apr 22, 2017 13:46
[2017-04-22] MEDS ORDERED: KETOROLAC TROMETHAMINE 60 MG/2 ML (IM) VIAL IM ONE (15:45)
--- NOTE | 2017-04-22 15:45 | PD ---
HPI Chief Complaint: GI Complaint Time Seen by Provider: 15:26 Travel History International Travel<30 days: No Contact w/Intl Traveler<30days: No History of Present Illness HPI 61-year-old female presents to the emergency department for evaluation of right knee pain that started on Friday, 3 days ago. She denies any trauma to the knee. She does report history to the right lateral knee, having a fatty tumor removed many years ago but cannot remember exactly when this occurred. Patient denies any fevers or chills. She denies any erythema or swelling. She states with even very light touch to the right anterior knee, she has intense pain. She states the pain has been so bad, that she has vomited. 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, bunion) Social History Alcohol Use: No Tobacco Use: No Substance Use: No Allergies-Medications (Allergen,Severity, Reaction): Coded Allergies: acetaminophen (Unverified Allergy, Severe, HIVES, 02/25/17) amoxicillin (Unverified Allergy, Severe, Rash, 02/25/17) cephalexin (Unverified Allergy, Severe, Rash, 02/25/17) cyclobenzaprine (Unverified Allergy, Severe, Rash, 02/25/17) penicillin G (Unverified Allergy, Severe, Rash, 02/25/17) Reported Meds & Prescriptions Reported Meds & Active Scripts Active Diclofenac Sodium DR (Diclofenac Sodium) 75 Mg Tabdr 75 Mg PO BID PRN Percocet (Oxycodone-Acetaminophen) 5-325 mg Tab 1 Tab PO Q6H PRN Ventolin Hfa 18 GM Inh (Albuterol Sulfate) 90 Mcg/Act Aer 2 Puff INH Q6H PRN Ibuprofen 800 Mg Tab 800 Mg PO Q8H PRN Azithromycin 250 Mg Tab 250 Mg PO DIRECTED Take 2 tabs (500 mg) on day 1 then 1 tab daily x 4 days. Naproxen 250 Mg Tab 250 Mg PO BID Take Naproxen 500mg (2 tablets) twice daily for 5 days, followed by 250mg (1 tablet) twice daily as needed for pain. Reported Synthroid (Levothyroxine Sodium) 125 Mcg Tab 125 Mcg PO DAILY Omeprazole 20 Mg Tab 20 Mg PO DAILY Meclizine (Meclizine HCl) 25 Mg Tab 25 Mg PO TID PRN Hydrocodone-Acetaminophen 5-325 mg Tab 1 Tab PO Q6H PRN Review of Systems Except as stated in HPI: all other systems reviewed are Neg Physical Exam Narrative GENERAL: Well-nourished, well-developed female patient, afebrile. SKIN: Focused skin assessment warm/dry. No erythema or warmth over right knee. HEAD: Normocephalic. EYES: No scleral icterus. No injection or drainage. NECK: Supple, trachea midline. No JVD or lymphadenopathy. CARDIOVASCULAR: Regular rate and rhythm without murmurs, gallops, or rubs. Right pedal pulse is 2+. RESPIRATORY: Breath sounds equal bilaterally. No accessory muscle use. Lungs sounds are clear to auscultation. GASTROINTESTINAL: Abdomen soft, non-tender, nondistended. MUSCULOSKELETAL: No cyanosis, or edema. Patient has tenderness over right knee , even with minimal palpation. Patient has slightly limited flexion due to pain. She has full extension. BACK: Nontender without obvious deformity. No CVA tenderness. Data Data Last Documented VS Vital Signs Date Time Temp Pulse Resp B/P (MAP) Pulse Ox O2 Delivery O2 Flow Rate FiO2 04/22/17 15:39 22 04/22/17 13:32 98.0 79 143/86 (105) 95 Room Air Orders Orders Knee, Complete (4vws) (04/22/17 ) Ketorolac Inj (Toradol Inj) (04/22/17 15:45) MDM Medical Decision Making Medical Screen Exam Complete: Yes Emergency Medical Condition: Yes Medical Record Reviewed: Yes Interpretation(s) Last Impressions Knee X-Ray 04/22/17 0000 Signed Impressions: Service Date/Time: Saturday, April 22, 2017 16:17 - CONCLUSION: No acute disease. Nahum Jefferson MD Differential Diagnosis arthritis vs. fracture vs. gout vs. septic joint Narrative Course 61-year-old female presents to the emergency department for evaluation of right knee pain without injury since Friday. No evidence of septic joint on exam. X-ray of the right knee is ordered and pending. Patient is given Toradol 60 mg IM. X-ray of the right knee shows no acute disease. I offered Edilberto bandage and crutches, but she declines. She has an orthopedist, Dr. Toussaint, whom she will follow up with. She is instructed to return here for any acute worsening of symptoms. She verbalizes agreement and understanding. The patient was discharged in stable condition with instructions, including return instructions and follow up instructions. Diagnosis Primary Impression: Knee pain Qualified Codes: M25.561 - Pain in right knee Condition: Stable Ganga,Merry HERNANDES Apr 22, 2017 15:45
--- NOTE | 2017-04-22 17:11 | RADRPT ---
EXAM DATE/TIME: 04/22/2017 16:17 [facility] COMPARISON: KNEE RIGHT COMPLETE (4VWS), June 13, 2015, 14:12. INDICATIONS : Knee pain on lateral side of knee. MEDICAL HISTORY : None. SURGICAL HISTORY : None. ENCOUNTER: Initial ACUITY: 1 day PAIN SCORE: 0/10 LOCATION: Right knee FINDINGS: Four view examination of the right knee demonstrates no evidence of fracture or dislocation. Bony mi neralization is normal. The articular surfaces are intact. The suprapatellar soft tissues have a no rmal configuration. CONCLUSION: No acute disease. Nahum Jefferson MD on April 22, 2017 at 16:59 Board Certified Radiologist. This report was verified electronically.
== END 2017-04-22 17:42 | disposition home or self-care (01) ==
LOC: NEPD 13:28
DX: M25.561 Pain in right knee (principal)
CPT/HCPCS: 73564; 96372; 99284; J1885

== ENCOUNTER → 2017-07-04 | Outpatient (CLI) | payer MEDICAID, MEDICARE ==
[~2017-07-04] MED LIST changes: +AZEL137S EACH NARE; -AZIT250T3 PO; +CARA1TAB6 PO; -DICL75TA PO; -HYDR-3516 PO; -IBUP800T23 PO; -NAPR250T PO; -OMEP20TA PO; +OMEP20TA93 PO; -PERC5TAB12 PO; +TRAM50TA PO; -VENTAER INH
[2017-07-04 08:52] LABS: HEMATOCRIT 44.7 % (35.0-46.0); HEMOGLOBIN 14.3 GM/DL (11.6-15.3); MEAN CELL VOLUME 93.4 FL (80.0-100.0); MEAN CORPUSCULAR HEMOGLOBIN 29.8 PG (27.0-34.0); MEAN PLATELET VOLUME 8.4 FL (7.0-11.0); PLATELET COUNT 221 TH/MM3 (150-450); RED BLOOD COUNT 4.78 MIL/MM3 (4.00-5.30); RED CELL DISTRIBUTION WIDTH 13.4 % (11.6-17.2)
[2017-07-04 08:53] LABS: BILIRUBIN, URINE NEG (NEG); BLOOD, URINE NEG (NEG); GLUCOSE,URINE NEG (NEG); KETONE, URINE NEG (NEG); NITRITE,URINE NEG (NEG); URINE LEUKOCYTE ESTERASE NEG (NEG)
[2017-07-04 09:06] LABS: CHLORIDE 100 MEQ/L (98-107); SODIUM (NA) 139 MEQ/L (136-145)
[2017-07-04 09:09] LABS: CALCIUM 8.1 MG/DL (8.5-10.1); GLUCOSE,RANDOM 120 MG/DL (74-106)
[2017-07-04 09:10] LABS: ALBUMIN 3.2 GM/DL (3.4-5.0); BICARBONATE 36.1 MEQ/L (21.0-32.0); BLOOD UREA NITROGEN 20 MG/DL (7-18)
[2017-07-04 09:11] LABS: PROTHROMBIN TIME - PATIENT 9.8 SEC (9.8-11.6)
[2017-07-04 09:13] LABS: ALT (GPT) 16 U/L (10-53); AST (GOT) 12 U/L (15-37); CREATININE 0.88 MG/DL (0.50-1.00); GLOMERULAR FILTRATION RATE 66 ML/MIN (>89)
[2017-07-04 09:15] LABS: TOTAL BILIRUBIN ADULT 0.4 MG/DL (0.2-1.0); TOTAL PROTEIN 7.2 GM/DL (6.4-8.2)
[2017-07-04 09:16] LABS: ALKALINE PHOSPHATASE 96 U/L (45-117)
[2017-07-04 09:18] LABS: SQUAMOUS EPITHELIAL CELL URINE > 8 /hpf (0-5); URINE COLOR YELLOW (YELLW/STRAW)
[2017-07-04 09:19] LABS: BACTERIA, URINE FEW /hpf
--- NOTE | 2017-07-04 22:30 | EKG ---
Date Performed: 07/04/2017 Time Performed: 08:54:05 PTAGE: 61 years EKG: Sinus rhythm NORMAL ECG PREVIOUS TRACING : 08/01/2016 13.51 Compared to prior tracing no significant change DOCTOR: Clive Martínez Interpretating Date/Time 07/04/2017 22:30:21
== END ==
LOC: PHPRE 07:59
PROVIDERS: ATTEND Surgery
DX: Z01.812 Encounter for preprocedural laboratory examination (principal); Z01.810 Encounter for preprocedural cardiovascular examination
CPT/HCPCS: 36415; 80053; 81001; 85027; 85610; 85730; 93005

== ENCOUNTER → 2017-07-11 | Day surgery (SDC) | payer MEDICARE, MEDICAID ==
--- NOTE | 2017-07-09 15:29 | MH ---
cc: Daisy CARPIO M.D. DATE OF ADMISSION: 07/11/2017 ADMISSION DIAGNOSIS Torn lateral meniscus right knee, now for arthroscopy right knee. ADMISSION HISTORY AND PHYSICAL A pleasant 61-year-old female who is being admitted today for arthroscopy right knee due to torn lateral meniscus. OTHER PAST HISTORY The patient has a history of: 1. Foot problems. 2. Dizziness. 3. Basal cell carcinoma removed from her head. 4. Back pain. 5. Fatty tumors. 6. Thyroid problems. CURRENT MEDICATIONS 1. Synthroid. 2. Meclizine. 3. Lyrica. REVIEW OF SYSTEMS Noncontributory. FAMILY HISTORY Noncontributory. SOCIAL HISTORY She does not smoke or drink. ALLERGIES LATEX, PENICILLIN, AMOXICILLIN, FLEXERIL. PHYSICAL EXAMINATION GENERAL: We find a 61-year-old female, well-developed, well-nourished, alert and oriented x3, complaining of pain in her right knee. VITAL SIGNS: Blood pressure 116/78, pulse 82 and regular, respirations 18, temperature 97.8, pulse oximetry 96% on room air. HEENT: Eyes PERRLA, EOMI. Ears, nose, mouth clear. NECK: Supple. LUNGS: Clear. HEART: Regular rate. ABDOMEN: Soft. Positive bowel sounds, nontender. EXTREMITIES: Reveal the right knee to be tender. She is neurovascularly intact to her toes. IMPRESSION AT THIS TIME Torn lateral meniscus, right knee. PLAN Admission for arthroscopy right knee today. The patient also now states she is ALLERGIC TO TYLENOL. She understands the procedure well and risks involved and wishes to proceed with surgery as soon as possible. She was given a prescription for Vicoprofen for pain control postoperatively. MD ISSAC De Leon/JESSICAL /2:48 PM /2:55 PM
[~2017-07-11] VITALS: Ht 162.6 cm; Wt 88.0 kg
[~2017-07-11] MED LIST changes: +*MEPERIDINE 25 MG INJ VIAL PERIprocedural Use ONLY ONE; +BUPIVACAINE HCL PF 0.25% 30 ML VIAL ONE; -CARA1TAB6 PO; +CHLORHEXIDINE GLUCONATE 2 % 1 PACK (2 CLOTHS) TOPICAL PRN; +CHLORHEXIDINE GLUCONATE 4% SOLN 120 ML BTL TOPICAL SCH; +CLINDAMYCIN 900 MG/NS 100 ML IV SCH; +DEXAMETHASONE SOD PHOS 4 MG/ML VIAL ONE; +FAMOTIDINE 20 MG/2 ML VIAL ONE; +KETOROLAC TROMETHAMINE 30 MG/ML (IVP) VIAL ONE; +LACTATED RINGER'S 1000 ML IV PRN; +LIDOCAINE HCL 1% 20 ML VIAL ONE; +LIDOCAINE HCL 1% PF 5 ML AMPULE OTHER ONE; +MEPERIDINE HCL 50 MG/ML VIAL ONE; +METOPROLOL TARTRATE 25 MG TAB PO PRN; +MIDAZOLAM HCL 2 MG/2 ML VIAL ONE; +ONDANSETRON HCL 4 MG/2 ML VIAL IV PUSH ONE; +POVIDONE IODINE 5% (ANTISEPSIS KIT) 4 APPLICATIONS EACH NARE PRN; +PROPOFOL 200 MG/20 ML AMP IV ONE; +TRIAMCINOLONE ACETONIDE 40 MG/ML VIAL ONE; +VANCOMYCIN 500 MG VIAL ONE
[2017-07-11 09:09] VITALS: PULSE 82
--- NOTE | 2017-07-11 09:26 | MP ---
cc: Daisy CARPIO DATE OF SURGERY 07/11/2017 PREOPERATIVE DIAGNOSIS Torn lateral meniscus right knee. 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 SURGERY PERFORMED Arthroscopy with excision of torn lateral meniscus and chondroplasty lateral compartment right knee. SURGEON Dr. Carpio BELT FIXER CECILIO Oates ANESTHESIA LMA PROCEDURE The patient was brought to the operating room and placed on the operating room table in the supine position. After successful induction of general anesthesia, the patient's right leg was prepped and draped in the usual manner. The knee was then placed in a knee bah and tightened. Arthroscopic examination was then performed by making a stab wound over the proximal superior and medial aspect of the patellofemoral joint for insertion of the inflow cannula and fluid, followed by stab wounds over the medial and lateral joint margins respectively for insertion of the arthroscope, shaver and probe. Arthroscopic examination was then performed which revealed an intact medial compartment, intact anterior cruciate, intact patellofemoral joint. The lateral compartment found to have a tear of the lateral meniscus with displacement which was shaved smooth using ArthroCare shaver and cutters for smoothing out the remains of the meniscus. The undersurface of the weightbearing surface of the lateral distal femoral condyle was found to have grade 3 chondromalacia changes shaved smooth using ArthroCare system. The wound was irrigated copiously with lactated Ringer's solution. Excess fluid was removed. 10 cc of 0.25% Marcaine and 1 cc of Decadron inserted into the knee joint. The skin was approximated with interrupted 3-0 nylon suture. Wet and dry dressing was applied to the wound followed by Xeroform gauze, sterile dressing and thigh high Edilberto wrap. No tourniquet utilized. Estimated blood loss 10 cc. Sponge suture count correct. The patient of procedure well and left the operating room in satisfactory condition. ADDENDUM CECILIO Oates was present during the entire procedure to include patient positioning and the procedure. The medical necessity of a nurse practitioner as a accounting administrative assistant was indicated this case due to the surgical complexity of the case itself. During the surgical case, the neurosurgical physician assistant was working the back table while my instructor adjunct surgical technician CECILIO was directly assisting me. J. MD ISSAC Roy/DJL /8:49 AM /8:18 AM
[2017-07-11 10:00] VITALS: TEMP 97.6
[2017-07-11 11:25] VITALS: BP 107/73; PULSE 86; RESP 14; O2SAT 97
== END | disposition home or self-care (01) ==
LOC: PHSDC 06:03
PROVIDERS: ATTEND Surgery
DX: S83.281A Other tear of lateral meniscus, current injury, right knee, initial encounter (principal); M94.261 Chondromalacia, right knee
CPT/HCPCS: 01400; 29881; E0113; J1100; J1885; J2175; J2250; J2405; J3010; J7120; J3301; J3370